=== PATIENT | male | born 1945 | race Caucasian/White ===

== ENCOUNTER 2017-06-01 14:33 | Inpatient (IN) | payer MEDICARE, OTHER ==
[~2017-06-01] VITALS: Ht 175.3 cm; Wt 60.8 kg
[2017-06-01] MEDS ORDERED: CILO100T GT (15:25)
[2017-06-01] MEDS ORDERED: CALC-838 GT (15:25)
[2017-06-01] MEDS ORDERED: ATOR10TA GT (15:25)
[2017-06-01] MEDS ORDERED: CRAN425C GT (15:25)
[2017-06-01] MEDS ORDERED: AMLO5TAB4 PO (15:25)
[2017-06-01] MEDS ORDERED: ACET-868 PO (15:25)
[2017-06-01] MEDS ORDERED: MAGN400O6 GT (15:25)
[2017-06-01] MEDS ORDERED: NUTR250L48 GT (15:25)
[2017-06-01] MEDS ORDERED: ASCO-340 PO (15:25)
[2017-06-01] MEDS ORDERED: DOCU-170 GT (15:25)
[2017-06-01] MEDS ORDERED: CARV6.252 GT (15:25)
[2017-06-01] MEDS ORDERED: VALP250S GT (15:25)
[2017-06-01] MEDS ORDERED: DONE10TA4 GT (15:25)
[2017-06-01] MEDS ORDERED: IPRA0.2S49 IH (15:25)
--- NOTE | 2017-06-01 17:28 | NUR ---
REPORT GIVEN TO LARS MACKEY 205
[2017-06-01 17:30] VITALS: BP 148/91
[2017-06-01 18:30] VITALS: BP 148/91
--- NOTE | 2017-06-01 19:30 | NUR ---
RN ADMITTING/OPENING NOTES Pt ALREADY ON MS2 FLOOR DURING CHANGE OF SHIFT. FOUND Pt AWAKE, RESTING COMFORTABLY AND QUIETLY IN BED. NO S/S OF ACUTE DISTRESS OR SOB NOTED. RESPIRATIONS EVEN AND UNLABORED. EQUAL CHEST RISE AND FALL. Pt IS A/OX1, VERY CONFUSED, BUT IS VERBAL AND RESPONSIVE. KNOWS ONLY NAME. GT SITE ON LT ABD. NO IV ACCESS FOUND. NO IVF ORDERS FOUND FROM MD. SAFETY MEASURES IN PLACE. BED LOW, LOCKED, HOB ELEVATED, SIDE RAILS UP, CALL LIGHT AND BEDSIDE TABLE WITHIN REACH. WILL CONTINUE TO MONITOR Pt THROUGHOUT THE NIGHT FOR SAFETY.
[2017-06-01 20:00] VITALS: BP 135/93
[2017-06-01] MEDS ORDERED: MAGNESIUM HYDROXIDE 30 ML UDC GT PRN (20:00)
[2017-06-01] MEDS ORDERED: HYDROCODONE/APAP 5/325MG 1 EACH TABLET PO PRN (20:00)
[2017-06-01] MEDS ORDERED: ZOLPIDEM TARTRATE 5 MG TABLET PO PRN (20:00)
[2017-06-01] MEDS ORDERED: MAG HYDROX/AL HYDROX/SIMETH 30 ML UDC PO PRN (20:00)
[2017-06-01] MEDS ORDERED: ACETAMINOPHEN 325 MG TABLET PO PRN (20:00)
[2017-06-01] MEDS ORDERED: MAGNESIUM HYDROXIDE 30 ML UDC PO PRN (20:00)
[2017-06-01] MEDS ORDERED: FIBERSOURCE HN 1,000 ML BOTTLE GT PRN (20:00)
[2017-06-01] MEDS ORDERED: ONDANSETRON HCL/PF 4 MG/2 ML VIAL IVP PRN (20:00)
[2017-06-01] MEDS ORDERED: Z GUARD REMEDY 2 OZ OINT TP PRN (20:00)
[2017-06-01] MEDS ORDERED: IPRATROPIUM NEB FS 0.5 MG/2.5 ML AMPUL.NEB IH PRN (20:00)
[2017-06-01] MEDS: DONEPEZIL 5 MG TABLET GT SCH (21:53)
[2017-06-01] MEDS: VALPROIC ACID 250 MG/5 ML UDC GT SCH (21:53)
[2017-06-01] MEDS: DOCUSATE SODIUM LIQ 100 MG/10 ML UDC GT SCH (21:53)
[2017-06-01] MEDS: ATORVASTATIN 10 MG TABLET GT SCH (21:53)
--- NOTE | 2017-06-02 04:27 | NUR ---
RN NOTES FORGOT TO SCAN GTFEEDING BAG OF FIBERSOURCE. PLACED Pt ON GTFEEDING @60ML/HR CONTINUOUS.
--- NOTE | 2017-06-02 06:45 | NUR ---
RN CLOSING NOTES NO SIGNIFICANT CHANGES IN Pt's CONDITION. Pt REMAINS STABLE AT THIS TIME. NO S/S OF ACUTE DISTRESS OR SOB NOTED DURING THE NIGHT. ALL NEEDS MET AND ATTENDED TO. SAFETY MEASURES IN PLACE. WILL ENDORSE TO DAYSHIFT RN FOR Pt's GIA.
--- NOTE | 2017-06-02 07:05 | NUR ---
RECEIVED REPORT AT THE BEDSIDE. PATIENT IS RESTING COMFORTABLY IN BED. NO SOB OR DISTRESS NOTED. PATIENT DENIES PAIN. GTUBE FEEDING INFUSING WELL. BED IN A LOW POSITION, CALL LIGHT WITHIN PATIENT REACH. WILL CONTINUE TO MONITOR.
[2017-06-02 08:00] VITALS: BP 143/105
[2017-06-02] MEDS: CILOSTAZOL 100 MG TABLET GT SCH ×2 (08:19→16:35)
[2017-06-02] MEDS: VALPROIC ACID 250 MG/5 ML UDC GT SCH ×3 (08:19→16:35)
[2017-06-02] MEDS: DOCUSATE SODIUM LIQ 100 MG/10 ML UDC GT SCH ×2 (08:19→16:35)
[2017-06-02] MEDS: CARVEDILOL 6.25 MG TABLET GT SCH ×2 (08:19→16:35)
[2017-06-02] MEDS: ASCORBIC ACID 500 MG TABLET GT SCH ×2 (08:19→16:35)
[2017-06-02] MEDS: AMLODIPINE BESYLATE 5 MG TABLET GT SCH (08:19)
[2017-06-02] MEDS: CALCIUM CARB 600MG /VIT D 1 EACH TABLET GT SCH (08:19)
[2017-06-02] MEDS ORDERED: Medication Not On Formulary EA (Cranberry Extract (Cranberry) 425 MG) GT SCH (09:00)
--- NOTE | 2017-06-02 13:24 | NUR ---
PT REFUSED AM LABS. LABS CANCELED AND NOTIFIED.
[2017-06-02 16:00] VITALS: BP 125/92
[2017-06-02 20:00] VITALS: BP 105/67
[2017-06-02] MEDS: FIBERSOURCE HN 1,000 ML BOTTLE GT PRN (21:10)
[2017-06-02] MEDS: DONEPEZIL 5 MG TABLET GT SCH (21:11)
[2017-06-02] MEDS: ATORVASTATIN 10 MG TABLET GT SCH (21:11)
--- NOTE | 2017-06-03 06:12 | NUR ---
RN CLOSING NOTES NO SIGNIFICANT CHANGES IN PATIENT CONDITION OVERNIGHT. PATIENT IS CURRENTLY SLEEPING. NO SOB OR DISTRESS NOTED AT THIS TIME. PATIENT DOES NOT APPEAR TO BE IN PAIN. BED IN A LOW POSITION, GTUBE FEEDING INFUSING AND TOLERATED WELL, CALL LIGHT WITHIN PATIENT REACH. WILL ENDORSE FOR GIA.
--- NOTE | 2017-06-03 07:10 | NUR ---
RN NOTES PT IS RESTING COMFORTABLY IN BED, NO SIGNS OF DISTRESS NOTED. PT ON RA, RESPIRATIONS ARE EVEN AND UNLABORED. SAFETY MEASURES ARE IN PLACE, CALL LIGHT IS IN REACH. WILL CONTINUE TO MONITOR.
[2017-06-03 08:00] VITALS: BP 117/97
[2017-06-03] MEDS: VALPROIC ACID 250 MG/5 ML UDC GT SCH ×3 (08:35→16:11)
[2017-06-03] MEDS: CALCIUM CARB 600MG /VIT D 1 EACH TABLET GT SCH (08:35)
[2017-06-03] MEDS: DOCUSATE SODIUM LIQ 100 MG/10 ML UDC GT SCH ×2 (08:35→16:11)
[2017-06-03] MEDS: CILOSTAZOL 100 MG TABLET GT SCH ×2 (08:35→16:11)
[2017-06-03] MEDS: ASCORBIC ACID 500 MG TABLET GT SCH ×2 (08:35→16:11)
[2017-06-03] MEDS: CARVEDILOL 6.25 MG TABLET GT SCH ×2 (08:36→16:13)
[2017-06-03] MEDS: AMLODIPINE BESYLATE 5 MG TABLET GT SCH (09:57)
[2017-06-03] MEDS: FIBERSOURCE HN 1,000 ML BOTTLE GT PRN (14:39)
[2017-06-03 16:00] VITALS: BP 110/77
--- NOTE | 2017-06-03 18:42 | NUR ---
RN NOTES PT IS SLEEPING IN BED COMFORTABLY. PT ON RA, RESPIRATIONS ARE EVEN AND UNLABORED. G-TUBE INTACT AND RUNNING FIBERSOURCE @ 60ML/HR. ALL MEDS WERE GIVEN ORDERED, ALL PT NEEDS MET. SAFETY MEASURES ARE IN PLACE, CALL LIGHT IS IN REACH. WILL ENDORSE TO HOME APPLIANCE WASHING MACHINE MECHANIC RN FOR CONTINUITY.
--- NOTE | 2017-06-03 19:00 | NUR ---
RN NOTES RECEIVED PT IN BED RESTING COMFORTABLY. A/O X 1, PT IN STABLE CONDITION, NO S/S OF DISTRESS. NO COMPLAINS OF PAIN AT THIS TIME. SAFETY MEASURES ARE IN PLACE, CALL LIGHT IS IN REACH. WILL CONTINUE TO MONITOR.
[2017-06-03 20:00] VITALS: BP 107/81
[2017-06-03] MEDS: ATORVASTATIN 10 MG TABLET GT SCH (21:21)
[2017-06-03] MEDS: DONEPEZIL 5 MG TABLET GT SCH (21:21)
--- NOTE | 2017-06-04 06:22 | NUR ---
MS RN CLOSING NOTES IN BED ASLEEP AND EASILY AWAKEN, HOB ELEVATED, TOLERATING ROOM AIR 98% GT FEEDING INFUSING ORDERED AND TOLERATED WELL. RESPIRATIONS EVEN AND UNLABORED. AFEBRILE, IN STABLE CONDITION. NOT IN S/S DISTRESS. ALL NURSING CARE RENDERED. NEEDS ATTENDED AND ANTICIPATED, KEPT CLEAN AND DRY AND COMFORTABLE, NO COMPLAINS OF PAIN AT THIS TIME. GOOD SKIN CARE PROVIDED. FREQUENT VISUAL CHECK DONE FOR SAFETY EVERY 2 HOURS. ON LOW BED AT ALL TIMES TO ENSURE SAFETY. SAFE HAZARD FREE ENVIRONMENT PROVIDED. CALL LIGHT WITHIN EASY TO REACH. WILL ENDORSE NEXT SHIFT CONTINUITY OF CARE. Addendum: 06/04/17 at 0626 by VINAYAK BONILLA RN ASSISTED REPOSITION Q2H
--- NOTE | 2017-06-04 07:04 | NUR ---
RN NOTES PT IS RESTING IN BED COMFORTABLY. PT ON RA, RESPIRATIONS ARE EVEN AND UNLABORED, NO SIGNS OF DISTRESS NOTED. G-TUBE IS IN PLACE AND RUNNING FIBERSOURCE @ 60ML/HR. SAFETY MEASURES ARE IN PLACE, CALL LIGHT IS IN REACH. WILL CONTINUE TO MONITOR.
[2017-06-04 08:00] VITALS: BP 150/59
[2017-06-04] MEDS: CILOSTAZOL 100 MG TABLET GT SCH ×2 (09:06→16:07)
[2017-06-04] MEDS: ASCORBIC ACID 500 MG TABLET GT SCH ×2 (09:06→16:07)
[2017-06-04] MEDS: VALPROIC ACID 250 MG/5 ML UDC GT SCH ×3 (09:06→16:08)
[2017-06-04] MEDS: DOCUSATE SODIUM LIQ 100 MG/10 ML UDC GT SCH ×2 (09:06→16:08)
[2017-06-04] MEDS: CALCIUM CARB 600MG /VIT D 1 EACH TABLET GT SCH (09:06)
[2017-06-04] MEDS: AMLODIPINE BESYLATE 5 MG TABLET GT SCH (09:07)
[2017-06-04] MEDS: CARVEDILOL 6.25 MG TABLET GT SCH ×2 (09:07→16:08)
[2017-06-04 16:00] VITALS: BP 108/81
--- NOTE | 2017-06-04 18:54 | NUR ---
RN NOTES PT IS SLEEPING COMFORTABLY IN BED, NO SIGNS OF DISTRESS NOTED. PT ON RA, RESPIRATIONS ARE EVEN AND UNLABORED. G-TUBE IS IN PLACE AND RUNNING FIBERSOURCE @ 60ML/HR. ALL MEDS WERE GIVEN ORDERED. PT NEEDS MET, KEPT CLEAN AND DRY. SAFETY MEASURES ARE IN PLACE, CALL LIGHT IS IN REACH. WILL ENDORSE TO WEB PORTAL DEVELOPER RN FOR CONTINUITY OF CARE.
--- NOTE | 2017-06-04 19:00 | NUR ---
RN NOTES IN BED RESTING COMFORTABLY. A/O X 1, PT IN STABLE CONDITION, NO S/S OF DISTRESS. SAFETY MEASURES ARE IN PLACE, CALL LIGHT IS IN REACH. WILL CONTINUE TO MONITOR.
[2017-06-04 20:00] VITALS: BP 132/81
[2017-06-04] MEDS: DONEPEZIL 5 MG TABLET GT SCH (21:24)
[2017-06-04] MEDS: ATORVASTATIN 10 MG TABLET GT SCH (21:24)
[2017-06-05] MEDS: FIBERSOURCE HN 1,000 ML BOTTLE GT PRN (04:58)
--- NOTE | 2017-06-05 06:33 | NUR ---
MS RN CLOSING NOTES ASLEEP AND EASILY AWAKEN, HOB ELEVATED, RESPIRATIONS EVEN AND UNLABORED. 99% R.A IN STABLE CONDITION. NOT IN S/S DISTRESS. KEPT CLEAN AND DRY AND COMFORTABLE, ALL NURSING CARE RENDERED. NEEDS ATTENDED AND ANTICIPATED, FREQUENT VISUAL CHECK DONE FOR SAFETY EVERY 2 HOURS. ASSISTED REPOSITION Q2H ON LOW BED AT ALL TIMES TO ENSURE SAFETY. SAFE HAZARD FREE ENVIRONMENT PROVIDED. CALL LIGHT WITHIN EASY TO REACH. WILL ENDORSE NEXT SHIFT CONTINUITY OF CARE.
--- NOTE | 2017-06-05 07:30 | NUR ---
MS RN NOTES RECEIVED PATIENT IN BED, AWAKE. A/O X1 WITH CONFUSION. ON GTUBE FEEDING FIBERSOURCE AT 60ML/HR, TOLERATING WELL. MAINTAIN HOB ELEVATED. APPEARS COMFORTABLE IN BED, DENIES ANY DISCOMFORT. SAFETY MEASURES PROVIDED. CALL LIGHT WITHIN REACH. WILL CONT TO MONITOR.
[2017-06-05 08:00] VITALS: BP 99/61
[2017-06-05 08:40] LABS: BASOPHILS # (AUTO) 0.1 /CMM (0.0-0.2); BASOPHILS % (AUTO) 0.8 % (0.0-2.0); EOSINOPHILS # (AUTO) 0.3 /CMM (0.0-0.7); EOSINOPHILS % (AUTO) 3.3 % (0.0-6.0); HEMATOCRIT 42 % (39-51); HEMOGLOBIN 13.1 g/dL (13.5-17.5); LYMPHOCYTES # (AUTO) 1.3 /CMM (0.8-4.8); LYMPHOCYTES % (AUTO) 14.3 % (20.0-44.0); MEAN CORPUSCULAR HEMOGLOBIN 28 PG (26.0-33.0); MEAN CORPUSCULAR HGB CONC 31 g/dl (31.0-36.0); MEAN CORPUSCULAR VOLUME 89 fL (80-96); MONOCYTES # (AUTO) 0.8 /CMM (0.1-1.30); MONOCYTES % (AUTO) 8.9 % (2.0-12.0); NEUTROPHILS # (AUTO) 6.7 /CMM (1.8-8.9); NEUTROPHILS % (AUTO) 72.7 % (43.0-81.0); PLATELET COUNT (AUTO) 319 /CMM (150-450); RED BLOOD CELL COUNT(AUTO) 4.71 MIL/uL (4.5-6.0); WHITE BLOOD COUNT (AUTO) 9.2 K/uL (4.3-11.0)
[2017-06-05 08:57] LABS: CALCIUM, SERUM 9.6 mg/dL (8.5-10.1); CARBON DIOXIDE 29 mmol/L (21-32); CHLORIDE 109 mmol/L (98-107); CREATININE 1.1 mg/dL (0.6-1.3); GLUCOSE 153 mg/dL (74-106); MAGNESIUM 2.3 mg/dL (1.8-2.4); PHOSPHORUS 3.9 mg/dL (2.5-4.9); POTASSIUM 5.1 mmol/L (3.5-5.1); SODIUM SERUM 145 mmol/L (136-145); UREA NITROGEN, BLOOD 39 mg/dL (7-18)
[2017-06-05] MEDS: CILOSTAZOL 100 MG TABLET GT SCH (09:01)
[2017-06-05] MEDS: ASCORBIC ACID 500 MG TABLET GT SCH (09:01)
[2017-06-05] MEDS: DOCUSATE SODIUM LIQ 100 MG/10 ML UDC GT SCH (09:02)
[2017-06-05] MEDS: VALPROIC ACID 250 MG/5 ML UDC GT SCH ×2 (09:02→12:57)
[2017-06-05] MEDS: CALCIUM CARB 600MG /VIT D 1 EACH TABLET GT SCH (09:02)
[2017-06-05 09:05] VITALS: BP 128/88
[2017-06-05] MEDS: CARVEDILOL 6.25 MG TABLET GT SCH (09:05)
[2017-06-05] MEDS: AMLODIPINE BESYLATE 5 MG TABLET GT SCH (09:05)
--- NOTE | 2017-06-05 13:47 | NUR ---
PATIENT TO BE DISCHARGED BACK TO SNF ORDERED.
--- NOTE | 2017-06-05 14:15 | NUR ---
MS RN CLOSING NOTES PATIENT HAS BEEN CLEARED FOR DISCHARGE BACK TO SNF. V/S REMAINS STABLE, RESPIRATION EVEN AND NON LABORED. GTUBE STOMA CLEAN AND DRY, GTUBE INTACT, FUNCTIONING WELL, FLUSHED WITH WATER. PATIENT IS CONFUSED, BASELINE. CALLED [facility] FOR REPORT, ATTEMPTED MULTIPLE TIMES BUT NO ONE ANSWERING THE PHONE. REPORT GIVEN TO AMBULANCE STAFF AND DISCHARGE WRITTEN INSTRUCTION SEND WITH THE PATIENT. PATIENT LEFT HOSP IN STABLE CONDITION VIA AMBULANCE.
== END 2017-06-05 14:00 | DRG 917 ==
LOC: EDBD 14:35 → ER 14:35 → MEDSG2 17:21
PROVIDERS: ADMIT Internal Medicine; ATTEND Internal Medicine
DX: T59.811A Toxic effect of smoke, accidental (unintentional), initial encounter (principal); G93.40 Encephalopathy, unspecified; G93.41 Metabolic encephalopathy; J70.5 Respiratory conditions due to smoke inhalation; Y92.129 Unspecified place in nursing home as the place of occurrence of the external cause; F03.90 Unspecified dementia, unspecified severity, without behavioral disturbance, psychotic disturbance, mood disturbance, and anxiety; H26.9 Unspecified cataract; I10 Essential (primary) hypertension; K21.9 Gastro-esophageal reflux disease without esophagitis; Z66 Do not resuscitate; Z93.1 Gastrostomy status; R13.10 Dysphagia, unspecified; E78.5 Hyperlipidemia, unspecified; F29 Unspecified psychosis not due to a substance or known physiological condition
CPT/HCPCS: 36415; 80048-TC; 83735-TC; 84100-TC; 85025-TC; 87081-TC; A4606; A6402; Z7610